=== PATIENT | female | born 1985 | race Caucasian/White ===

== ENCOUNTER 2023-09-01 11:34 | Outpatient (CLI) | payer OTHER | END 2023-09-01 11:35 | disposition home or self-care (01) | LOC: SCSMRI 11:34 | PROVIDERS: ATTEND Family Medicine | DX: M51.16 Intervertebral disc disorders with radiculopathy, lumbar region (principal); M48.061 Spinal stenosis, lumbar region without neurogenic claudication; M48.8X6 Other specified spondylopathies, lumbar region | CPT/HCPCS: 72148 ==

== ENCOUNTER 2023-09-02 12:54 | Emergency (ER) | payer OTHER, SELFPAY ==
[2023-09-02] MEDS ORDERED: Acetaminophen 500 MG TAB ONE (15:14)
[2023-09-02 16:06] LABS: Bilirubin Negative (Negative); Blood, Urine Trace (Negative); CAUTI Indications for Culture Dysuria,urgency,freq; Clarity Clear (Clear); Glucose, Urine (Dipstick) 30 mg/dL (Negative); Ketone, Urine 20 mg/dL (Negative); Leukocyte Negative Leu/uL (Negative); Nitrite Negative (Negative); Protein, Urine (Dipstick) Negative (Neg-Trace); RBC/HPF 0-3 HPF (0-3); Specific Gravity, Urine 1.019 (1.002-1.036); Squamous Epithelial 0-3 HPF (0-3); Urobilinogen Normal mg/dL (Less than 2); WBC/HPF None Seen HPF (0-3); pH, Urine 5.5 (5.0-9.0)
[2023-09-02 16:12] LABS: Bacteria/HPF 1+ HPF (None Seen)
[2023-09-02 16:13] LABS: Urine Culture Reflex No No
== END 2023-09-02 16:50 | disposition home or self-care (01) ==
LOC: ERS 12:54
DX: M51.26 Other intervertebral disc displacement, lumbar region (principal); R32 Unspecified urinary incontinence; F17.210 Nicotine dependence, cigarettes, uncomplicated
CPT/HCPCS: 81001; 99283

== ENCOUNTER 2024-03-23 04:26 | Emergency (ER) | payer SELFPAY ==
[2024-03-23] MEDS ORDERED: Losartan 25 MG TAB ONE (05:11)
== END 2024-03-23 06:47 | disposition home or self-care (01) ==
LOC: EEVIPCON 04:26 → ERS 04:26
DX: I10 Essential (primary) hypertension (principal); F17.210 Nicotine dependence, cigarettes, uncomplicated; Z55.6 Problems related to health literacy
CPT/HCPCS: 99283

== ENCOUNTER 2024-08-28 11:10 | Outpatient (CLI) | payer OTHER | END 2024-08-28 11:11 | disposition home or self-care (01) | LOC: SCSMRI 11:10 | PROVIDERS: ATTEND Orthopaedic Surgery Orthopaedic Surgery of the Spine | DX: M51.16 Intervertebral disc disorders with radiculopathy, lumbar region (principal); K60.2 Anal fissure, unspecified | CPT/HCPCS: 72148 ==